=== PATIENT | female | born 1990 | race Caucasian/White ===

== ENCOUNTER 2023-01-09 13:58 | Emergency (ER) | payer MEDICAID ==
[~2023-01-09] VITALS: Ht 170.2 cm; Wt 113.4 kg
[~2023-01-09 13:58] MED LIST: CANNOT RECALL
--- NOTE | 2023-01-09 14:12 | NUR ---
IV ACCESS ESTABLISHED. 20G RIGHT AC. BLOOD DRAWN AND SENT TO LAB.
--- NOTE | 2023-01-09 14:14 | NUR ---
AT BEDSIDE FOR EVAL
--- NOTE | 2023-01-09 14:15 | NUR ---
CODE STROKE ACTIVATED
[2023-01-09] MEDS ORDERED: IV NS 0.9% 250 ML IV ONE (14:21)
[2023-01-09] MEDS ORDERED: IOHEXOL-350 100 ML VIAL IV ONE (14:21)
[2023-01-09] MEDS ORDERED: CT SWABBABLE VALVE TRANS SET 1 EA INFUS.SET MC ONE (14:21)
[2023-01-09 14:23] LABS: BASOPHILS % (AUTO) 0.4 % (0.0-2.0); EOSINOPHILS % (AUTO) 0.7 % (0.0-6.0); HEMATOCRIT 35 % (33-45); HEMOGLOBIN 11.4 g/dL (11.5-14.8); LYMPHOCYTES # (AUTO) 1.4 K/uL (0.8-4.8); LYMPHOCYTES % (AUTO) 18.3 % (20.0-44.0); MEAN CORPUSCULAR HGB CONC 33 g/dl (31.0-36.0); MEAN CORPUSCULAR VOLUME 85 fL (82-100); MONOCYTES # (AUTO) 0.6 K/uL (0.1-1.30); MONOCYTES % (AUTO) 7.6 % (2.0-12.0); NEUTROPHILS # (AUTO) 5.6 K/uL (1.8-8.9); PLATELET COUNT (AUTO) 370 K/uL (150-450); RED BLOOD CELL COUNT(AUTO) 4.05 MIL/uL (4.0-5.2); WHITE BLOOD COUNT (AUTO) 7.7 K/uL (4.3-11.0)
[2023-01-09 14:30] LABS: CALCIUM, SERUM 9.1 mg/dL (8.5-10.1); CARBON DIOXIDE 23 mmol/L (21-32); CHLORIDE 103 mmol/L (98-107); CREATININE 0.8 mg/dL (0.6-1.3); GLUCOSE 91 mg/dL (74-106); POTASSIUM 3.3 mmol/L (3.5-5.1); SODIUM SERUM 139 mmol/L (136-145); UREA NITROGEN, BLOOD 17 mg/dL (7-18)
--- NOTE | 2023-01-09 14:32 | NUR ---
RETURNED FROM [facility]IA [facility]
[2023-01-09] MEDS ORDERED: MIDAZOLAM HCL 2 MG/2ML VIAL IV ONE (15:00)
[2023-01-09] MEDS ORDERED: PROCHLORPERAZINE EDISYLATE 10 MG/2 ML VIAL IVP ONE (15:00)
[2023-01-09] MEDS ORDERED: SUMATRIPTAN SUCCINATE 6 MG/0.5 ML VIAL SQ ONE ×2 (15:00→15:04)
[2023-01-09] MEDS ORDERED: PROCHLORPERAZINE EDISYLATE 10 MG/2 ML VIAL ONE (15:04)
[2023-01-09] MEDS ORDERED: MIDAZOLAM HCL 2 MG/2ML VIAL ONE (15:05)
--- NOTE | 2023-01-09 16:41 | NUR ---
Patient discharged to home in stable condition. Written and verbal after care instructions given. Patient verbalizes understanding of instruction.IV removed. Catheter intact and site benign. Pressure and 4x4 applied to site. No bleeding noted.
[2023-01-09 16:44] VITALS: BP 130/77
== END 2023-01-09 16:45 | disposition home or self-care (01) ==
LOC: ER 14:19
DX: F43.9 Reaction to severe stress, unspecified (principal); F45.8 Other somatoform disorders; Z88.8 Allergy status to other drugs, medicaments and biological substances
CPT/HCPCS: 99285; 70498; 96374; 71045; 96375; 93005; 70496; 85025; 80048; 85378; 36415; 84484; 85730; 82962; 70450; 96372; J0780; J3030; J7050; J2250; Q9967